=== PATIENT | male | born 1970 | race Caucasian/White ===

== ENCOUNTER 2017-01-30 09:11 | Inpatient (IN) | payer BC ==
[2017-01-30] VITALS (7 sets, daily range): BP systolic 104–158
[~2017-01-30] VITALS: Ht 182.9 cm; Wt 106.6 kg
[2017-01-30] MEDS ORDERED: NACL 0.9% 1,000 ML IV ONE (09:41)
[2017-01-30] MEDS ORDERED: ASPIRIN 81 MG TAB.CHEW PO ONE (09:45)
[2017-01-30] MEDS ORDERED: NITROGLYCERIN 1 INCH (GM) OINT. TP ONE (09:45)
[2017-01-30 10:08] LABS: BASOPHILS # (AUTO) 0.1 K/uL (0.0-0.2); BASOPHILS % (AUTO) 1.2 % (0.0-2.0); EOSINOPHILS # (AUTO) 0.2 K/uL (0.0-0.4); EOSINOPHILS % (AUTO) 3.3 % (0.0-4.0); HEMATOCRIT 51.3 % (36-54); HEMOGLOBIN 17.1 g/dL (14.0-18.0); LYMPHOCYTES % (AUTO) 26.6 % (20.5-51.5); MEAN CORPUSCULAR HEMOGLOBIN 30 pg (27-31); MEAN CORPUSCULAR HGB CONC 33 % (32-36); MEAN CORPUSCULAR VOLUME 89 fL (79.0-98.0); MONOCYTES # (AUTO) 0.6 K/uL (0.0-1.0); MONOCYTES % (AUTO) 8.5 % (1.7-9.3); NEUTROPHILS # (AUTO) 4.5 K/uL (1.8-7.7); NEUTROPHILS % (AUTO) 60.4 % (40.0-70.0); PLATELET COUNT (AUTO) 284 K/uL (130-430); RED BLOOD CELL COUNT(AUTO) 5.79 MIL/uL (4.2-6.2); RED CELL DISTRIBUTION WIDTH 12.8 % (9.0-15.0); WHITE BLOOD COUNT (AUTO) 7.4 K/uL (4.8-10.8)
[2017-01-30 10:13] LABS: ANION GAP 11 (5-15); CHLORIDE 104 mmol/L (98-107); CREATININE 1.09 mg/dL (0.55-1.30); GLUCOSE 109 mg/dL (70-99); POTASSIUM 4.2 mmol/L (3.5-5.1); SODIUM SERUM 141 mmol/L (136-145); UREA NITROGEN, BLOOD 5 mg/dL (8-21)
[2017-01-30 10:14] LABS: GFR AFRICAN AMERICAN 93 mL/min (>90)
[2017-01-30 10:17] LABS: INR 0.9 (0.80-1.20)
[2017-01-30 10:22] LABS: ALANINE AMINOTRANSFERASE 35 U/L (12-78); ALBUMIN 4.1 g/dL (3.4-4.8); ASPARTATE AMINOTRANSFERASE 21 U/L (10-37); LIPASE 138 U/L (73-393); TOTAL BILIRUBIN 0.6 mg/dL (0.0-1.0)
[2017-01-31] VITALS: BP_SYST 98
[2017-01-31 04:00] VITALS: BP_SYST 96
[2017-01-31 08:00] VITALS: BP_SYST 126
[2017-01-31 10:52] LABS: CHOLESTEROL 199 mg/dL (<200); HDL CHOLESTEROL 32 mg/dL (>45); LDL CHOLESTEROL 146 mg/dL (<100); TRIGLYCERIDES 249 mg/dL (30-150)
[2017-01-31 12:01] VITALS: BP_SYST 128
[2017-01-31] MEDS ORDERED: LIP40 PO (13:18)
[2017-01-31] MEDS ORDERED: FENO160 PO (13:19)
[2017-01-31 13:27] VITALS: BP_SYST 128
== END 2017-01-31 13:50 | disposition home or self-care (01) | DRG 313 ==
LOC: SED 09:11 → STU 11:09
PROVIDERS: ADMIT Family Medicine; ATTEND Family Medicine
DX: R07.89 Other chest pain (principal); E78.5 Hyperlipidemia, unspecified; F17.210 Nicotine dependence, cigarettes, uncomplicated; Z71.6 Tobacco abuse counseling; Z82.49 Family history of ischemic heart disease and other diseases of the circulatory system
CPT/HCPCS: 36415; 76700-TC; 80053; 80061; 83690-TC; 84484; 85025; 85379; 85610-TC; 85730-TC; 93005; 93306; 93978; 96360; 99285; J7030